=== PATIENT | female | born 1965 | race Two or more races ===

== ENCOUNTER 2019-08-05 01:33 | Emergency (ER) | payer SELFPAY ==
[~2019-08-05] VITALS: Ht 162.6 cm; Wt 86.2 kg
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
--- NOTE | 2019-08-05 05:57 | NUR ---
PT RESTING COMFORTABLY IN BED. VITAL SIGNS STABLE. NO ACUTE DISTRESS NOTED AT THIS TIME. WILL CONTINUE TO MONITOR
--- NOTE | 2019-08-05 08:49 | NUR ---
PT CONT TO LEEP RESP EVEN UNLABORED
[2019-08-05 10:02] VITALS: BP 122/74
--- NOTE | 2019-08-05 10:02 | NUR ---
PT. VERBALIZED UNDERSTANDING OF AFTERCARE INSTRUCTIONS.Patient discharged to home in stable condition. Written and verbal after care instructions given. Patient verbalizes understanding of instruction.
== END 2019-08-05 10:03 | disposition home or self-care (01) ==
LOC: ER 01:35 → EDBD 01:35 → ER 10:03
DX: F10.129 Alcohol abuse with intoxication, unspecified (principal); R41.82 Altered mental status, unspecified; Y90.9 Presence of alcohol in blood, level not specified; Z59.0 Homelessness
CPT/HCPCS: 82962-TC